=== PATIENT | female | born 2000 | race Caucasian/White ===

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

== ENCOUNTER 2022-08-11 18:49 | Emergency (ER) | payer OTHER ==
[~2022-08-11] VITALS: Ht 160 cm; Wt 83.9 kg
[2022-08-11 19:06] VITALS: BP 138/62
[2022-08-11 21:06] LABS: APPEARANCE,URINE CLEAR (CLEAR); BILIRUBIN,URINE NEGATIVE (NEGATIVE); BLOOD, URINE NEGATIVE (NEGATIVE); COLOR,URINE YELLOW (YELLOW); LEUKOCYTE ESTERASE ,URINE TRACE (NEGATIVE); NITRITE, URINE NEGATIVE (NEGATIVE); UGLUCOSE NEGATIVE (NEGATIVE)
[2022-08-11 21:31] LABS: RBC,URINE NONE SEEN /HPF (0-5); WBC,URINE 0-5 /HPF (0-5)
[2022-08-11 21:32] LABS: TRICHOMONAS,URINE None Seen /HPF (None Seen); YEAST,URINE None Seen /HPF (None Seen)
[2022-08-11] MEDS ORDERED: KETOROLAC 15 MG/ML VIAL IM ONE (22:20)
--- NOTE | 2022-08-11 22:27 | NUR ---
PT TO BED #11
[2022-08-11 22:39] LABS: BASOPHILS % (AUTO) 0.4 % (0.0-2.0); EOSINOPHILS # (AUTO) 0.3 K/uL (0-0.4); EOSINOPHILS % (AUTO) 2.8 % (0.0-4.0); HEMATOCRIT 34.2 % (36-48); HEMOGLOBIN 11.6 g/dL (12.0-16.0); LYMPHOCYTES # (AUTO) 3.2 K/uL (2.5-16.5); LYMPHOCYTES % (AUTO) 35.4 % (20.5-51.1); MEAN CORPUSCULAR HEMOGLOBIN 30 pg (27-31); MEAN CORPUSCULAR HGB CONC 34 g/dL (33-37); MEAN CORPUSCULAR VOLUME 87.4 fL (80-94); MONOCYTES # (AUTO) 0.6 K/uL (0.8-1.0); MONOCYTES % (AUTO) 6.4 % (1.7-9.3); PLATELET COUNT (AUTO) 333 K/uL (140-450); RED BLOOD CELL COUNT(AUTO) 3.91 MIL/uL (4.20-5.40); RED CELL DISTRIBUTION WIDTH 12.7 % (11.6-13.7); WHITE BLOOD COUNT (AUTO) 9.1 K/uL (4.5-11.0)
[2022-08-11 22:56] LABS: ALBUMIN 4.2 g/dL (3.4-5.0); ANION GAP 10.9 (8-16); CARBON DIOXIDE 30.3 mmol/L (21-32); CREATININE 0.7 mg/dL (0.6-1.3); POTASSIUM 4.2 mmol/L (3.5-5.1); TOTAL BILIRUBIN 0.2 mg/dL (0.0-1.0)
--- NOTE | 2022-08-11 23:12 | NUR ---
INTERVIEWED PATIENT AT BEDSIDE, PATIENT REPORTS RIGHT SIDED FLANK PAIN WHICH HAS BEEN PRESENT SINCE Friday08/05/2022. DENIES PREVIOUS HISTORY OF PAIN, SURGERY. NO VOMITING, NO DIARRHEA.
[2022-08-12] MEDS ORDERED: CEPH-588 PO (01:18)
[2022-08-12] MEDS ORDERED: LID5T TP (01:18)
[2022-08-12] MEDS ORDERED: IBUP-2213 PO (01:18)
--- NOTE | 2022-08-12 02:00 | NUR ---
Patient discharged with v/s stable. Written and verbal after care instructions given and explained. Patient alert, oriented and verbalized understanding of instructions. Ambulatory with steady gait. All questions addressed prior to discharge. ID band removed. Patient advised to follow up with PMD. Rx of cephalexin, Ibuprofen, lidocaine given. Opportunity to ask questions provided and answered.
== END 2022-08-12 02:00 | disposition home or self-care (01) ==
LOC: MED 18:49
DX: N39.0 Urinary tract infection, site not specified (principal); K59.00 Constipation, unspecified; J45.909 Unspecified asthma, uncomplicated; Z79.899 Other long term (current) drug therapy
CPT/HCPCS: 36415; 74178; 76705; 80053; 81001; 81025; 83690; 85025; 96372; 99285; J1885; Q0092; Q9967